=== PATIENT | female | born 1975 | race Caucasian/White ===

== ENCOUNTER 2017-02-13 03:06 | Emergency (ER) | payer MEDICAID ==
[~2017-02-13] VITALS: Ht 160 cm; Wt 51.4 kg
[2017-02-13 03:07] VITALS: BP 118/80
[2017-02-13] MEDS ORDERED: AZITHROMYCIN 500 MG TABLET PO ONE (03:30)
[2017-02-13] MEDS ORDERED: CEFTRIAXONE 250 MG IM ONE (03:30)
[2017-02-13] MEDS ORDERED: CEFTRIAXONE 250 MG ONE (03:39)
[2017-02-13] MEDS ORDERED: AZITHROMYCIN 500 MG TABLET ONE (03:39)
[2017-02-13] MEDS ORDERED: LIDOCAINE 1%, 20ML ONE (03:40)
== END 2017-02-13 03:56 | disposition home or self-care (01) ==
LOC: ED 03:54
DX: A54.9 Gonococcal infection, unspecified (principal); J02.9 Acute pharyngitis, unspecified
CPT/HCPCS: 96372; 99283; J0696